=== PATIENT | female | born 1965 | race Native Hawaiian/Other Pacific Islander ===

== ENCOUNTER 2016-12-15 11:03 | Outpatient (CLI) | payer OTHER | END 2016-12-15 19:14 | disposition home or self-care (01) | LOC: MAMMO 11:03 | DX: Z12.31 Encounter for screening mammogram for malignant neoplasm of breast (principal) | CPT/HCPCS: G0202-TC ==

== ENCOUNTER 2017-01-03 18:02 | Outpatient (CLI) | payer OTHER | END 2017-01-03 19:00 | disposition home or self-care (01) | LOC: RAD 18:02 | DX: Z01.810 Encounter for preprocedural cardiovascular examination (principal) ==